=== PATIENT | male | born 1940 | race Caucasian/White ===

== ENCOUNTER 2017-11-08 14:27 | Emergency (ER) | payer MEDICARE ==
[~2017-11-08] VITALS: Ht 175.3 cm; Wt 113.0 kg
[2017-11-08 14:39] VITALS: BP 110/68; PULSE 93; RESP 18; TEMP 98.4; O2SAT 97
[2017-11-08] MEDS ORDERED: FAMO20TA2 PO (14:39)
[2017-11-08] MEDS ORDERED: GABA300C5 PO ×2 (14:39)
[2017-11-08] MEDS ORDERED: SPIR50TA PO (14:39)
[2017-11-08] MEDS ORDERED: DULO1CAP3 PO (14:39)
[2017-11-08] MEDS ORDERED: DIPH25CA PO (14:39)
[2017-11-08] MEDS ORDERED: DOXY100C PO (14:39)
[2017-11-08] MEDS ORDERED: ATOR10TA15 PO (14:39)
[2017-11-08] MEDS ORDERED: RAMI10CA PO (14:39)
[2017-11-08] MEDS ORDERED: LEVO100T5 PO (14:39)
[2017-11-08] MEDS ORDERED: PRAM1 PO (14:39)
[2017-11-08] MEDS ORDERED: FURO80TA PO (14:39)
--- NOTE | 2017-11-08 15:12 | PD ---
HPI Chief Complaint: Numbness/Tingling Time Seen by Provider: 14:58 Travel History International Travel<30 days: No Contact w/Intl Traveler<30days: No Traveled to known affect area: No History of Present Illness HPI 77-year-old male complains of a less than 1 minute episode of bilateral lower extremity weakness. The patient ambulated into an elevator and suddenly felt his legs become weak and then he fell to the ground in a somewhat slumping-like fashion causing some contact with the right shoulder and some subsequent pain. He denies head trauma. No loss of consciousness. No syncope/near syncope symptoms preceded the event. He describes it as a somewhat abrupt brief (less than 1 minute) loss of motor function in the legs associated with complete sensory loss of the legs. There is no upper extremity weakness numbness or facial neurologic change. Patient reports similar episodes occurred several months ago following knee surgery however none have recurred since. He has not been evaluated for them. He notes taking Lyrica and drinking of beer in the few hours prior to the event. He has no complaints in the ER. Immediate and total neurologic recovery occurred after the long weakness interval. 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) Influenza Vaccination: Yes ?: Not Past Surgical History Joint Replacement: Yes (Left total knee) Social History Alcohol Use: Yes (occ) Tobacco Use: No Substance Use: No Allergies-Medications (Allergen,Severity, Reaction): Coded Allergies: Penicillins (Verified Allergy, Intermediate, Hives, 11/08/17) cephalexin (Verified Allergy, Intermediate, Rash, 11/08/17) Reported Meds & Prescriptions Reported Meds & Active Scripts Active Reported Spironolactone 50 Mg Tab 50 Mg PO DAILY Ramipril 10 Mg Cap 10 Mg PO DAILY Mirapex (Pramipexole Dihydrochloride) 1 Mg Tab 2 Mg PO HS Levothyroxine (Levothyroxine Sodium) 100 Mcg Tab 100 Mcg PO DAILY Gabapentin 300 Mg Cap 300 Mg PO TID Gabapentin 300 Mg Cap 300 Mg PO AC BREAKFAST Furosemide 80 Mg Tab 80 Mg PO BID Famotidine 20 Mg Tab 20 Mg PO BID Duloxetine DR (Duloxetine HCl) 60 Mg Capdr 60 Mg PO DAILY Doxycycline Hyclate 100 Mg Cap 100 Mg PO BID Diphenhydramine (Diphenhydramine HCl) 25 Mg Cap 25 Mg PO Q12H PRN Atorvastatin (Atorvastatin Calcium) 10 Mg Tab 10 Mg PO HS Review of Systems Except as stated in HPI: all other systems reviewed are Neg General / Constitutional: No: Fever Physical Exam Narrative GENERAL: 77 yo M, WNWD, NAD, AOX4 Vital Signs Date Time Temp Pulse Resp B/P (MAP) Pulse Ox O2 Delivery O2 Flow Rate FiO2 11/08/17 14:39 98.4 93 18 110/68 (82) 97 SKIN: Warm and dry. HEAD: Atraumatic. Normocephalic. EYES: Pupils equal and round. No scleral icterus. No injection or drainage. ENT: No nasal bleeding or discharge. Mucous membranes pink and moist. NECK: Trachea midline. No JVD. CARDIOVASCULAR: Regular rate and rhythm. RESPIRATORY: No accessory muscle use. Clear to auscultation. Breath sounds equal bilaterally. GASTROINTESTINAL: Abdomen soft, non-tender, nondistended. Hepatic and splenic margins not palpable. MUSCULOSKELETAL: Extremities without clubbing, cyanosis, or edema. No obvious deformities. NEUROLOGICAL: AOx4. Motor function normal bilateral lower extremities. Sensation intact to light touch throughout the lower legs and feet. CNIII-XII normal. PSYCHIATRIC: Appropriate mood and affect; insight and judgment normal. Data Data Last Documented VS Vital Signs Date Time Temp Pulse Resp B/P (MAP) Pulse Ox O2 Delivery O2 Flow Rate FiO2 11/08/17 14:39 98.4 93 18 110/68 (82) 97 Orders Orders Ed Discharge Order (11/08/17 15:11) MDM Medical Decision Making Medical Screen Exam Complete: Yes Emergency Medical Condition: Yes Medical Record Reviewed: Yes Differential Diagnosis neuropathy, syncope, stroke Narrative Course Presentation is not consistent with a stroke or TIA. The patient states he will follow-up with his primary care provider in 2 days. He also reports a full battery of blood work was noticed a few days ago. Return precautions discussed. Diagnosis Primary Impression: Transient weakness of left lower extremity Additional Impression: Transient weakness of right lower extremity Referrals: Primary Care Physician call for appointment Med/Other Pt SpecificInfo: No Change to Meds Disposition: 01 DISCHARGE HOME Condition: Stable Deric Zaman MD Nov 08, 2017 15:12
== END 2017-11-08 15:27 | disposition home or self-care (01) ==
LOC: PHED 14:27
DX: R53.1 Weakness (principal); E78.00 Pure hypercholesterolemia, unspecified; I11.0 Hypertensive heart disease with heart failure; I50.9 Heart failure, unspecified
CPT/HCPCS: 99281